=== PATIENT | female | born 1990 | race Caucasian/White ===

== ENCOUNTER 2020-11-15 13:19 | Emergency (ER) | payer OTHER, BC ==
[2020-11-15] MEDS ORDERED: Diphtheria,Pertussis(Acell),Tetanus Vaccine 0.5 ML Syringe IM ONE (14:20)
--- NOTE | 2020-11-15 14:30 | EDM.PDOC ---
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 Patient states that the area was bleeding extensively so she applied pressure and came to the emergency room immediately. Patient states that she is not up-to-date on her tetanus vaccine and would like to update this today. Patient states she is fully able to move the finger but does have pain of the area that was cut. Denies any other symptoms or concerns. Patient denies fever, chills, chest pain, shortness of breath, or cough. Denies headache, neck stiff ness, change in vision, syncope, or near syncope. Denies nausea, vomiting, abdominal pain, diarrhea, constipation, or dysuria. Has not noted any blood in urine or stool. Patient has been eating and drinking approp riately. Review of systems: As per history of present illness and below otherwise all systems reviewed and negative. Past medical history: As per history of present illness and as reviewed below otherwise noncontributory. Surgical history: As per history of present illness and as reviewed below otherwise noncontributory. Social history: See social history for further information Family history: As per history of present illness and as reviewed below otherwise noncontributory. Physical exam: General: Patient is alert, oriented, and in no acute distress. Patient sitting comfortably on exam table. Vitals stable and reviewed by me. HEENT: Atraumatic, normocephalic, pupils equal and reactive bilaterally, negative for conjunctival pallor or scleral icterus, mucous membranes moist, TMs normal bilaterally, throat clear, neck supple, nontender, trachea midline. No drooling or trismus noted. No meningeal signs. No hot potato voice noted. Lungs: Clear to auscultation, breath sounds equal bilaterally, chest nontender. Heart: S1S2, regular rate and rhythm without overt murmur Abdomen: Soft, nondistended, nontender. Negative for masses or hepatosplenomegaly. Negative for costovertebral tenderness. Pelvis: Stable nontender. Genitourinary: Deferred. Rectal: Deferred. Skin: Intact, warm, dry. No lesions or rashes noted. Extremities: There is a 2cm by 1cm area of shaved/missing skin on the thumb pad of the left hand 1st digit with steady bleeding after bandage removed. Patient has full range of motion of the complete digit without deficit. Intact sensation to light and deep touch of the complete left upper extremity without deficit. Radial pulses grossly intact of the left upper extremity with capillary refill less than 2 seconds. Otherwise, atraumatic, negative for cords or calf pain. Neurovascular unremarkable. Neuro: Awake, alert, oriented. Cranial nerves II through XII unremarkable. Cerebellum unremarkable. Motor and sensory unremarkable throughout. Exam nonfocal. Notes: Upon arrival to the ED, patient does have a rather large area of missing skin that was shaved off that is steadily bleeding. A finger tourniquet was applied to the thumb in order to stop the bleeding after bandage was removed. I was better able to assess the area after bleeding was stopped. There is not a repairable laceration, as this is an area of missing skin. Area was cleaned wit h chlorahexadine and 250cc of sterile fluid. A Surgicel clotting bulky dressing that was placed by nursing staff as well as myself with hemostasis noted after surgiseal application. Signs and symptoms that were prompt return to the ED thoroughly discussed with patient. Discussed importance for follow-up with primary care provider. Voices understanding and is agreeable to plan of care. Denies any further questions or concerns at this time. Diagnostics: None Therapeutics: tdap, surgiseal clotting / sterile bulky dressing placed by nursing staff Prescription: None Impression: Thumb wound, left, open Plan: 1. Keep the area clean and dry. Continue to monitor for signs of infection as discussed. Keep the bulky dressing on for 24 hours before removing. Do not get wet and keep dry. 2. Tylenol and/or ibuprofen as directed and as needed for pain management and discomfort. 3. Please follow-up with your primary care provider as discussed. Return to the ED as needed and as discussed. Definitive disposition and diagnosis as appropriate pending reevaluation and review of above. Left Finger-Thumb Pain Score (Numeric/FACES): 4 - Related Data Allergies Allergy/AdvReac Type Severity Reaction Status Date / Time No Known Allergies Allergy Verified 11/15/20 13:52 Home Meds: Home Meds Sertraline [Zoloft] 50 mg PO DAILY 11/15/20 [History] Past Medical History - Past Health History Medical/Surgical History: Denies Medical/Surgical History Psychiatric History: Reports: Anxiety - Infectious Disease History Infectious Disease History: Reports: None Social & Family History - Tobacco Use Tobacco Use Status *Q: Never Tobacco User - Caffeine Use Caffeine Use: Reports: Coffee - Recreational Drug Use Recreational Drug Use: No ED ROS GENERAL - Review of Systems Review Of Systems: Comprehensive ROS is negative, except as noted in HPI. ED EXAM, SKIN/RASH Exam: See Below (see dictation) Course - Vital Signs Last Recorded V/S: Last Vital Signs Temp 97.4 F 11/15/20 13:53 Pulse 84 11/15/20 13:53 Resp 16 11/15/20 13:53 BP 135/64 11/15/20 13:53 Pulse Ox 100 11/15/20 13:53 - Orders/Labs/Meds Orders: Active Orders 24 hr Category Date Time Status Vaccines to be Administered [RC] PER UNIT ROUTINE Care 11/15/20 14:20 Active Meds: Medications Discontinued Medications Generic Name Dose Route Start Last Admin Trade Name Freq PRN Reason Stop Dose Admin Diphtheria/Tetanus/Acell Pertussis 0.5 ml 11/15/20 14:20 11/15/20 14:38 Diphtheria,Pertussis(Acell),Tetanus Vaccine 0.5 Ml Syringe IM 11/15/20 14:21 0.5 ml .ONCE ONE Administration Departure - Departure Time of Disposition: 14:29 Disposition: Home, Self-Care 01 Clinical Impression: Open wound of thumb Qualifiers: Encounter type: initial encounter Laterality: left Qualified Code(s): S61.002A - Unspecified open wound of left thumb without damage to nail, initial encounter - Discharge Information Instructions: Nonsutured Laceration Care Referrals: PCP,None [Primary Care Provider] - Forms: ED Department Discharge Additional Instructions: The following information is given to patients seen in the emergency department who are being discharged to home. This information is to outline your options for follow-up care. We provide all patients seen in our emergency department with a follow-up referral. The need for follow-up, as well as the timing and circumstances, are variable depending upon the specifics of your emergency department visit. If you don't have a primary care physician on staff, we will provide you with a referral. We always advise you to contact your personal physician following an emergency department visit to inform them of the circumstance of the visit and for follow-up with them and/or the need for any referrals to a consulting specialist. The emergency department will also refer you to a specialist when appropriate. This referral assures that you have the opportunity for follow-up care with a specialist. All of these measure are taken in an effort to provide you with optimal care, which includes your follow-up. Under all circumstances we always encourage you to contact your private physician who remains a resource for coordinating your care. When calling for follow-up care, please make the office aware that this follow-up is from your recent emergency room visit. If for any reason you are refused follow-up, please contact the [facility] at and asked to speak to the emergency department charge nurse. [facility] [address] [place] [id number] [place] [address] 1. Keep the area clean and dry. Continue to monitor for signs of infection as discussed. Keep the bulky dressing on for 24 hours before removing. Do not get wet and keep dry. 2. Tylenol and/or ibuprofen as directed and as needed for pain management and discomfort. 3. Please follow-up with your primary care provider as discussed. Return to the ED as needed and as discussed. Sepsis Event Note (ED) - Evaluation Sepsis Screening Result: No Definite Risk - Focused Exam Vital Signs: Vital Signs Temp Pulse Resp BP Pulse Ox 11/15/20 13:53 97.4 F 84 16 135/64 100 - My Orders Last 24 Hours: My Active Orders 11/15/20 14:20 Vaccines to be Administered [RC] PER UNIT ROUTINE - Assessment/Plan Last 24 Hours: My Active Orders 11/15/20 14:20 Vaccines to be Administered [RC] PER UNIT ROUTINE
== END 2020-11-15 14:45 | disposition home or self-care (01) ==
LOC: MW.ED 13:19
DX: S61.002A Unspecified open wound of left thumb without damage to nail, initial encounter (principal); Z23 Encounter for immunization; Z79.899 Other long term (current) drug therapy; W26.8XXA Contact with other sharp object(s), not elsewhere classified, initial encounter
CPT/HCPCS: 90471; 90715; 99282

== ENCOUNTER 2020-11-15 18:16 | Emergency (ER) | payer OTHER, BC ==
[2020-11-15] MEDS ORDERED: Lidocaine 1% with EPINEPHrine 1:100,000 10 ML MDV INJECT ONE (20:26)
[2020-11-15] MEDS ORDERED: Lidocaine 1% with EPINEPHrine 1:100,000 20 ML MDV INJECT ONE (20:32)
[2020-11-15] MEDS ORDERED: Octyl 2-Cyanoacrylate 1 Tube TOP ONE (20:44)
--- NOTE | 2020-11-15 21:05 | EDM.PDOC ---
ED HPI GENERAL MEDICAL PROBLEM - General Chief Complaint: Laceration Stated Complaint: LEFT THUMB LACERATION Time Seen by Provider: 11/15/20 18:18 Source of Information: Reports: Patient History Limitations: Reports: No Limitations - History of Present Illness INITIAL COMMENTS - FREE TEXT/NARRATIVE: HISTORY AND PHYSICAL: History of present illness: She is a 30-year-old female who presents emergency room today with concern of a wound to her left hand thumb that occurred earlier today quiet personally seen and evaluated a few hours prior. Patient presented at that time after cutting her thumb on a mandolin cutter at work. Was updated on tetanus at her prior ED visit and was found to have a open wound of her left thumb that at that time was slowly bleeding and a surgiseal clotting pressure dressing was applied. Patient states that when she got home, the bandage was doing well. Patient states that she has started using her left hand and noted that the area had blood through the dressing that was placed in the emergency room. Patient denies any other symptoms or concerns. Patient denies fever, chills, chest pain, shortness of breath, or cough. Denies headache, neck stiff ness, change in vision, syncope, or near syncope. Denies nausea, vomiting, abdominal pain, diarrhea, constipation, or dysuria. Has not noted any blood in urine or stool. Patient has been eating and drinking appropriately. Review of systems: As per history of present illness and below otherwise all systems reviewed and negative. Past medical history: As per history of present illness and as reviewed below otherwise noncontributory. Surgical history: As per history of present illness and as reviewed below otherwise noncontributory. Social history: See social history for further information Family history: As per history of present illness and as reviewed below otherwise noncontributory. Physical exam: General: Patient is alert, oriented, and in no acute distress. Patient sitting comfortably on exam table. HEENT: Atraumatic, normocephalic, pupils equal and reactive bilaterally, negative for conjunctival pallor or scleral icterus, mucous membranes moist, TMs normal bilaterally, throat clear, neck supple, nontender, trachea midline. No drooling or trismus noted. No meningeal signs. No hot potato voice noted. Lungs: Clear to auscultation, breath sounds equal bilaterally, chest nontender. Heart: S1S2, regular rate and rhythm without overt murmur Abdomen: Soft, nondistended, nontender. Negative for masses or hepatosplenomegaly. Negative for costovertebral tenderness. Pelvis: Stable nontender. Genitourinary: Deferred. Rectal: Deferred. Skin: Intact, warm, dry. No lesions or rashes noted. Extremities: Bulky dressing and Surgicel were removed. The bulky dressing was noted to be saturated with blood. The wound of the thumb was reassessed and found to have a 2 cm x 1 cm shaved area of missing skin that continually has a small amount of oozing bleeding. Patient has full range of motion of the digit without deficit with intact sensation to light and deep touch of the complete left upper extremity without deficit. Radial pulse grossly intact of the left u pper extremity with capillary refill less than 2 seconds. Otherwise, atraumatic, negative for cords or calf pain. Neurovascular unremarkable. Neuro: Awake, alert, oriented. Cranial nerves II through XII unremarkable. Cerebellum unremarkable. Motor and sensory unremarkable throughout. Exam nonfocal. Notes: Upon arrival to the ED, patient has appeared to fail the Surgicel pressure dressing that was applied from prior ER visit. Will soak tranexamic acid dressing and apply pressure above patients head for 15-20 minutes with finger tourniquet applied. After tranexamic acid had been placed and pressure above patient's head had been applied for 15 to 20 minutes, and removal of finger tourniquet, the area continues to have a steady trickling of bleeding from the area of missing skin. Reattempt to apply surgiseal failed with rebleed. Lidocaine w epi dripped onto wound with noted stopping of bleeding. Dermabond applied after area dried. After complete drying of dermabond, area reassessed with noted hemostasis. Sterile bulky dressing applied by nursing staff. Patient states that she does feel a little "off "so will obtain an H&H after due to prolonged bleeding of wound. H&H is stable with a hemoglobin of 8.1 and a hematocrit of 38. Strict return precautions thoroughly discussed with patient. Discussed importance for follow-up with a primary care provider. Voices understanding and is agreeable to plan of care. Denies any further questions or concerns at this time. Diagnostics: None Therapeutics: TXA topical, Lidocaine w epi, surgiseal, dermabond Prescription: None Impression: Open wound of thumb with bleeding Plan: 1. Continue to monitor for signs of rebleeding as discussed. You can use Tylenol as directed for pain and discomfort. 2. Follow-up with your primary care provider as discussed. Return to the ED as needed and as discussed. Definitive disposition and diagnosis as appropriate pending reevaluation and review of above. Left Finger-Thumb Pain Score (Numeric/FACES): 1 - Related Data Allergies Allergy/AdvReac Type Severity Reaction Status Date / Time No Known Allergies Allergy Verified 11/15/20 18:50 Home Meds: Home Meds Sertraline [Zoloft] 50 mg PO DAILY 11/15/20 [History] Past Medical History - Past Health History Medical/Surgical History: Denies Medical/Surgical History Psychiatric History: Reports: Anxiety - Infectious Disease History Infectious Disease History: Reports: None Social & Family History - Tobacco Use Tobacco Use Status *Q: Never Tobacco User - Caffeine Use Caffeine Use: Reports: None - Recreational Drug Use Recreational Drug Use: No ED ROS GENERAL - Review of Systems Review Of Systems: Comprehensive ROS is negative, except as noted in HPI. ED EXAM, SKIN/RASH Exam: See Below (see dictation) Course - Vital Signs Last Recorded V/S: Last Vital Signs Temp 98.3 F 11/15/20 18:50 Pulse 64 11/15/20 22:17 Resp 18 11/15/20 22:17 BP 115/78 11/15/20 22:17 Pulse Ox 100 11/15/20 22:17 - Orders/Labs/Meds Labs: Laboratory Tests 11/15/20 Range/Units 21:52 Hgb 13.1 (12.0-16.0) g/dL Hct 38.1 (36.0-46.0) % Meds: Medications Discontinued Medications Generic Name Dose Route Start Last Admin Trade Name Freq PRN Reason Stop Dose Admin Lidocaine/Epinephrine 10 ml 11/15/20 20:26 11/15/20 20:48 Lidocaine 1% With Epinephrine 1:100,000 10 Ml Mdv INJECT 11/15/20 20:27 Not Given ONETIME ONE Lidocaine/Epinephrine 20 ml 11/15/20 20:32 11/15/20 20:48 Lidocaine 1% With Epinephrine 1:100,000 20 Ml Mdv INJECT 11/15/20 20:33 20 ml ONETIME ONE Administration Octyl Cyanoacrylate 1 applic 11/15/20 20:44 11/15/20 21:20 Octyl 2-Cyanoacrylate 1 Tube TOP 11/15/20 20:45 1 applic ONETIME ONE Administration Tranexamic Acid 1,000 mg 11/15/20 19:08 11/15/20 19:21 Tranexamic Acid 1,000 Mg/10 Ml Amp TOP 11/15/20 19:18 1,000 mg ONETIME ONE Administration Departure - Departure Time of Disposition: 21:04 Disposition: Home, Self-Care 01 Clinical Impression: Bleeding from wound Open wound of thumb Qualifiers: Encounter type: subsequent encounter Laterality: left Qualified Code(s): S61 .002D - Unspecified open wound of left thumb without damage to nail, subsequent encounter - Discharge Information Instructions: Uncontrolled Wound Bleeding, Laceration Care, Adult Referrals: Belinda Coyne MD [Primary Care Provider] - Forms: ED Department Discharge Additional Instructions: The following information is given to patients seen in the emergency department who are being discharged to home. This information is to outline your options for follow-up care. We provide all patients seen in our emergency department with a follow-up referral. The need for follow-up, as well as the timing and circumstances, are variable depending upon the specifics of your emergency department visit. If you don't have a primary care physician on staff, we will provide you with a referral. We always advise you to contact your personal physician following an emergency department visit to inform them of the circumstance of the visit and for follow-up with them and/or the need for any referrals to a consulting specialist. The emergency department will also refer you to a specialist when appropriate. This referral assures that you have the opportunity for follow-up care with a specialist. All of these measure are taken in an effort to provide you with optimal care, which includes your follow-up. Under all circumstances we always encourage you to contact your private physician who remains a resource for coordinating your care. When calling for follow-up care, please make the office aware that this follow-up is from your recent emergency room visit. If for any reason you are refused follow-up, please contact the [facility] Emergency Department at and asked to speak to the emergency department charge nurse. [facility] [address] [place] [id number] [facility] [address] [place] [id number] 1. Continue to monitor for signs of rebleeding as discussed. You can use Tylenol as directed for pain and discomfort. 2. Follow-up with your primary care provider as discussed. Return to the ED as needed and as discussed. Sepsis Event Note (ED) - Evaluation Sepsis Screening Result: No Definite Risk - Focused Exam Vital Signs: Vital Signs Temp Pulse Resp BP Pulse Ox 11/15/20 22:17 64 18 115/78 100 11/15/20 18:50 98.3 F 76 16 102/57 L 100
== END 2020-11-15 22:18 | disposition home or self-care (01) ==
LOC: MW.ED 18:16
DX: S61.002A Unspecified open wound of left thumb without damage to nail, initial encounter (principal); R58 Hemorrhage, not elsewhere classified; W26.8XXA Contact with other sharp object(s), not elsewhere classified, initial encounter; Y92.89 Other specified places as the place of occurrence of the external cause; Y99.0 Civilian activity done for income or pay
CPT/HCPCS: 12001; 36415; 85014; 85018; 99283; A9270

== ENCOUNTER 2025-04-25 13:33 | Emergency (ER) | payer BC ==
[2025-04-25] MEDS ORDERED: Sodium Chloride 0.9% 10 ML Syringe FLUSH PRN (14:15)
[2025-04-25] MEDS ORDERED: Sodium Chloride 0.9% 2.5 ML Syringe FLUSH PRN (14:15)
[2025-04-25] MEDS: Ketorolac 30 MG/ML SDV IVPUSH ONE (14:20)
[2025-04-25 14:37] LABS: BASOPHILS ABSOLUTE AUTO 0.06 K/uL (0.00-0.20); BASOPHILS PERCENT AUTO 1.0 % (0.0-1.0); EOSINOPHILS ABSOLUTE AUTO 0.06 K/uL (0.00-0.45); EOSINOPHILS PERCENT AUTO 1.0 % (0.0-6.0); IMMATURE GRAN ABSOLUTE AUTO 0.01 K/uL (0.00-0.05); IMMATURE GRAN PERCENT AUTO 0.2 % (0.0-0.4); LYMPHOCYTES ABSOLUTE AUTO 1.06 K/uL (1.00-4.80); LYMPHOCYTES PERCENT AUTO 17.1 % (24.0-44.0); MEAN PLATELET VOLUME 10.0 fL (9.4-12.3); MONOCYTES ABSOLUTE AUTO 0.68 K/uL (0.00-0.80); MONOCYTES PERCENT AUTO 11.0 % (0.0-8.0); NEUTROPHILS ABSOLUTE AUTO 4.32 K/uL (1.80-7.70); NEUTROPHILS PERCENT AUTO 69.7 % (41.0-71.0); NRBC ABSOLUTE 0.00 K/uL (0.00-0.02); NRBC PERCENT 0.0 /100WBC (0.0-0.2); PLATELET COUNT,PLT 205 K/uL (150-400); RED BLOOD CELL COUNT 4.00 M/uL (4.10-5.30); WHITE BLOOD CELL COUNT,WBC 6.19 K/uL (3.9-11.3)
[2025-04-25] MEDS: cefTRIAXone 1 GM in Water For Injection, Sterile 10 ML IVPUSH ONE (14:58)
[2025-04-25 14:59] LABS: A/G RATIO 1.0 (0.9-1.6); ALANINE AMINOTRANSFERASE,ALT 33 IU/L (14-63); ASPARTATE AMNIOTRANSFERASE,AST 25 IU/L (15-37); BILIRUBIN TOTAL 0.7 mg/dL (0.2-1.0); BLOOD UREA NITROGEN,BUN 16 mg/dL (7.0-18.0); CARBON DIOXIDE,CO2 23.5 mmol/L (21.0-32.0); CHLORIDE,CL 107 mmol/L (98-107); CREATININE 0.9 mg/dL (0.6-1.0); GLUCOSE RANDOM 105 mg/dL (74-106); POTASSIUM,K 3.5 mmol/L (3.5-5.1); PROTEIN TOTAL,TP 6.8 g/dL (6.4-8.2); SODIUM,NA 141 mmol/L (136-145)
[2025-04-25 15:00] LABS: ESTIMATED GFR 84 mL/min (>60)
[2025-04-25 15:02] LABS: LACTIC ACID 2.2 mmol/L (0.4-2.0)
[2025-04-25] MEDS: Dexamethasone Sod Phos Preservative Free 10 MG/ML Vial IV ONE (15:54)
[2025-04-25] MEDS: Dexamethasone 10 MG/ML SDV IVPUSH ONE (16:17)
== END 2025-04-25 16:36 | disposition home or self-care (01) ==
LOC: MW.ED 13:33
DX: J18.9 Pneumonia, unspecified organism (principal); E87.20 Acidosis, unspecified; Z79.899 Other long term (current) drug therapy; Z75.3 Unavailability and inaccessibility of health-care facilities
CPT/HCPCS: 36415; 71046; 80053; 83605; 83690; 83735; 85025; 87428; 96361; 96365; 96375; 99285; A9270; J0456; J0696; J1100; J1885; J7030; J7050

== ENCOUNTER 2025-04-27 10:23 | Inpatient (IN) | payer BC ==
[2025-04-27] MEDS: Iopamidol 755 MG/ML 500 ML Multipack Bottle IVPUSH STA (11:13)
[2025-04-27 11:14] LABS: BASOPHILS ABSOLUTE AUTO 0.04 K/uL (0.00-0.20); BASOPHILS PERCENT AUTO 0.5 % (0.0-1.0); EOSINOPHILS ABSOLUTE AUTO 0.15 K/uL (0.00-0.45); EOSINOPHILS PERCENT AUTO 2.1 % (0.0-6.0); IMMATURE GRAN ABSOLUTE AUTO 0.01 K/uL (0.00-0.05); IMMATURE GRAN PERCENT AUTO 0.1 % (0.0-0.4); LYMPHOCYTES ABSOLUTE AUTO 1.62 K/uL (1.00-4.80); LYMPHOCYTES PERCENT AUTO 22.2 % (24.0-44.0); MEAN PLATELET VOLUME 9.6 fL (9.4-12.3); MONOCYTES ABSOLUTE AUTO 0.61 K/uL (0.00-0.80); MONOCYTES PERCENT AUTO 8.3 % (0.0-8.0); NEUTROPHILS ABSOLUTE AUTO 4.88 K/uL (1.80-7.70); NEUTROPHILS PERCENT AUTO 66.8 % (41.0-71.0); NRBC ABSOLUTE 0.00 K/uL (0.00-0.02); NRBC PERCENT 0.0 /100WBC (0.0-0.2); PLATELET COUNT,PLT 249 K/uL (150-400); RED BLOOD CELL COUNT 4.08 M/uL (4.10-5.30); WHITE BLOOD CELL COUNT,WBC 7.31 K/uL (3.9-11.3)
[2025-04-27] MEDS: methylPREDNISolone Sodium Succinate 125 MG/2 ML SDV IVPUSH ONE (11:18)
[2025-04-27 11:30] LABS: D-DIMER QUANTITATIVE 0.85 mg/L FEU (0.00-0.50); INR 1.01 (0.86-1.11)
[2025-04-27 11:48] LABS: LACTIC ACID 1.4 mmol/L (0.4-2.0)
[2025-04-27 11:54] LABS: A/G RATIO 1.1 (0.9-1.6); ALANINE AMINOTRANSFERASE,ALT 87 IU/L (14-63); ASPARTATE AMNIOTRANSFERASE,AST 53 IU/L (15-37); BILIRUBIN TOTAL 0.4 mg/dL (0.2-1.0); BLOOD UREA NITROGEN,BUN 18 mg/dL (7.0-18.0); CARBON DIOXIDE,CO2 26.8 mmol/L (21.0-32.0); CHLORIDE,CL 106 mmol/L (98-107); CREATININE 0.8 mg/dL (0.6-1.0); EST CRCL DRUG DOSING (CG) 72.65 mL/min; GLUCOSE RANDOM 93 mg/dL (74-106); POTASSIUM,K 3.5 mmol/L (3.5-5.1); PROTEIN TOTAL,TP 7.5 g/dL (6.4-8.2); SODIUM,NA 144 mmol/L (136-145)
[2025-04-27 11:56] LABS: ESTIMATED GFR 97 mL/min (>60)
[2025-04-27] MEDS: Levofloxacin/Dextrose 5%-Water 750 MG in Premix Bag 1 BAG IV ONE (12:20)
[2025-04-27] MEDS: Ketorolac 30 MG/ML SDV IVPUSH ONE (12:48)
[2025-04-27] MEDS: Lidocaine 2% Viscous Solution 15 ML UD PO ONE (12:48)
[2025-04-27] MEDS ORDERED: Sodium Chloride 0.9% 10 ML Syringe FLUSH PRN (14:05)
[2025-04-27] MEDS ORDERED: Sodium Chloride 0.9% 2.5 ML Syringe FLUSH PRN (14:05)
[2025-04-27] MEDS ORDERED: Ondansetron 4 MG/2 ML SDV IVPUSH PRN (14:06)
[2025-04-27] MEDS: cefTRIAXone 1 GM in Water For Injection, Sterile 10 ML IVPUSH SCH (14:43)
[2025-04-27] MEDS: Phenol 1.4% Oral Spray 177 ML Bottle MUCMEM PRN (15:11)
[2025-04-27] MEDS: Benzocaine/Cetylpyridinium/Menthol Lozenge MUCMEM PRN (15:11)
[2025-04-27] MEDS: Codeine/guaiFENesin 10-100 MG/5 ML Syrup 5 ML Cup PO PRN (15:11)
[2025-04-27] MEDS: Magnesium Sulfate 2 GM/50 mL 2 GM in Premix Bag 1 BAG IV ONE (16:34)
[2025-04-28 06:06] LABS: BASOPHILS ABSOLUTE AUTO 0.01 K/uL (0.00-0.20); BASOPHILS PERCENT AUTO 0.1 % (0.0-1.0); EOSINOPHILS ABSOLUTE AUTO 0.00 K/uL (0.00-0.45); EOSINOPHILS PERCENT AUTO 0.0 % (0.0-6.0); IMMATURE GRAN ABSOLUTE AUTO 0.02 K/uL (0.00-0.05); IMMATURE GRAN PERCENT AUTO 0.2 % (0.0-0.4); LYMPHOCYTES ABSOLUTE AUTO 1.13 K/uL (1.00-4.80); LYMPHOCYTES PERCENT AUTO 11.8 % (24.0-44.0); MEAN PLATELET VOLUME 9.9 fL (9.4-12.3); MONOCYTES ABSOLUTE AUTO 0.85 K/uL (0.00-0.80); MONOCYTES PERCENT AUTO 8.9 % (0.0-8.0); NEUTROPHILS ABSOLUTE AUTO 7.56 K/uL (1.80-7.70); NEUTROPHILS PERCENT AUTO 79.0 % (41.0-71.0); NRBC ABSOLUTE 0.00 K/uL (0.00-0.02); NRBC PERCENT 0.0 /100WBC (0.0-0.2); PLATELET COUNT,PLT 210 K/uL (150-400); RED BLOOD CELL COUNT 3.26 M/uL (4.10-5.30); WHITE BLOOD CELL COUNT,WBC 9.57 K/uL (3.9-11.3)
[2025-04-28 06:39] LABS: BLOOD UREA NITROGEN,BUN 10.0 mg/dL (7.0-18.0); CARBON DIOXIDE,CO2 23.8 mmol/L (21.0-32.0); CHLORIDE,CL 110.0 mmol/L (98-107); CREATININE 0.6 mg/dL (0.6-1.0); EST CRCL DRUG DOSING (CG) 96.87 mL/min; GLUCOSE RANDOM 108.0 mg/dL (74-106); POTASSIUM,K 3.4 mmol/L (3.5-5.1); SODIUM,NA 144.0 mmol/L (136-145)
[2025-04-28 06:44] LABS: ESTIMATED GFR 118.0 mL/min (>60)
[2025-04-28] MEDS: Sodium Chloride 0.9% Inhalation Soln 3 ML Neb INH SCH (12:18)
[2025-04-28] MEDS ORDERED: Naloxone 0.4 MG/ML SDV IVPUSH PRN (15:38)
[2025-04-28] MEDS: Codeine/guaiFENesin 10-100 MG/5 ML Syrup 5 ML Cup PO PRN (21:04)
[2025-04-29 02:46] LABS: APPEARANCE,URINE CLEAR; GLUCOSE,URINE NEGATIVE (NEGATIVE); OCCULT BLOOD,URINE NEGATIVE (NEGATIVE)
[2025-04-29 02:59] LABS: EPITHELIAL CELLS,URINE FEW (NONE-FEW)
[2025-04-29 05:07] LABS: BORDETELLA PARAPERT IS1001 Not Detected (Not Detected)
[2025-04-29 05:58] LABS: BASOPHILS ABSOLUTE AUTO 0.06 K/uL (0.00-0.20); BASOPHILS PERCENT AUTO 0.8 % (0.0-1.0); EOSINOPHILS ABSOLUTE AUTO 0.28 K/uL (0.00-0.45); EOSINOPHILS PERCENT AUTO 3.9 % (0.0-6.0); IMMATURE GRAN ABSOLUTE AUTO 0.04 K/uL (0.00-0.05); IMMATURE GRAN PERCENT AUTO 0.6 % (0.0-0.4); LYMPHOCYTES ABSOLUTE AUTO 2.26 K/uL (1.00-4.80); LYMPHOCYTES PERCENT AUTO 31.8 % (24.0-44.0); MEAN PLATELET VOLUME 9.5 fL (9.4-12.3); MONOCYTES ABSOLUTE AUTO 0.54 K/uL (0.00-0.80); MONOCYTES PERCENT AUTO 7.6 % (0.0-8.0); NEUTROPHILS ABSOLUTE AUTO 3.92 K/uL (1.80-7.70); NEUTROPHILS PERCENT AUTO 55.3 % (41.0-71.0); NRBC ABSOLUTE 0.00 K/uL (0.00-0.02); NRBC PERCENT 0.0 /100WBC (0.0-0.2); PLATELET COUNT,PLT 229 K/uL (150-400); RED BLOOD CELL COUNT 3.34 M/uL (4.10-5.30); WHITE BLOOD CELL COUNT,WBC 7.10 K/uL (3.9-11.3)
[2025-04-29 06:30] LABS: BLOOD UREA NITROGEN,BUN 12.0 mg/dL (7.0-18.0); CARBON DIOXIDE,CO2 24.7 mmol/L (21.0-32.0); CHLORIDE,CL 109.0 mmol/L (98-107); CREATININE 0.7 mg/dL (0.6-1.0); EST CRCL DRUG DOSING (CG) 83.03 mL/min; GLUCOSE RANDOM 85.0 mg/dL (74-106); POTASSIUM,K 4.1 mmol/L (3.5-5.1); SODIUM,NA 141.0 mmol/L (136-145)
[2025-04-29 06:33] LABS: ESTIMATED GFR 114.0 mL/min (>60)
[2025-04-29] MEDS: Ketorolac 30 MG/ML SDV IVPUSH PRN (08:26)
[2025-04-30 05:55] LABS: BASOPHILS ABSOLUTE AUTO 0.05 K/uL (0.00-0.20); BASOPHILS PERCENT AUTO 0.7 % (0.0-1.0); EOSINOPHILS ABSOLUTE AUTO 0.36 K/uL (0.00-0.45); EOSINOPHILS PERCENT AUTO 4.8 % (0.0-6.0); IMMATURE GRAN ABSOLUTE AUTO 0.04 K/uL (0.00-0.05); IMMATURE GRAN PERCENT AUTO 0.5 % (0.0-0.4); LYMPHOCYTES ABSOLUTE AUTO 2.23 K/uL (1.00-4.80); LYMPHOCYTES PERCENT AUTO 29.6 % (24.0-44.0); MEAN PLATELET VOLUME 9.4 fL (9.4-12.3); MONOCYTES ABSOLUTE AUTO 0.65 K/uL (0.00-0.80); MONOCYTES PERCENT AUTO 8.6 % (0.0-8.0); NEUTROPHILS ABSOLUTE AUTO 4.21 K/uL (1.80-7.70); NEUTROPHILS PERCENT AUTO 55.8 % (41.0-71.0); NRBC ABSOLUTE 0.00 K/uL (0.00-0.02); NRBC PERCENT 0.0 /100WBC (0.0-0.2); PLATELET COUNT,PLT 273 K/uL (150-400); RED BLOOD CELL COUNT 3.51 M/uL (4.10-5.30); WHITE BLOOD CELL COUNT,WBC 7.54 K/uL (3.9-11.3)
[2025-04-30 06:19] LABS: BLOOD UREA NITROGEN,BUN 10.0 mg/dL (7.0-18.0); CARBON DIOXIDE,CO2 27.7 mmol/L (21.0-32.0); CHLORIDE,CL 107.0 mmol/L (98-107); CREATININE 0.7 mg/dL (0.6-1.0); EST CRCL DRUG DOSING (CG) 83.03 mL/min; GLUCOSE RANDOM 86.0 mg/dL (74-106); POTASSIUM,K 3.9 mmol/L (3.5-5.1); SODIUM,NA 142.0 mmol/L (136-145)
[2025-04-30 06:21] LABS: ESTIMATED GFR 114.0 mL/min (>60)
== END 2025-04-30 13:30 | disposition home or self-care (01) | DRG 139 ==
LOC: MW.ED 10:23 → MW.MS 13:55
PROVIDERS: ADMIT Internal Medicine; ATTEND Internal Medicine
DX: J16.0 Chlamydial pneumonia (principal); F41.9 Anxiety disorder, unspecified; E86.0 Dehydration; Z79.899 Other long term (current) drug therapy
CPT/HCPCS: 36415; 71046; 71046-26; 71275; 71275-26; 80048; 80053; 81001; 83605; 83690; 83735; 84484; 85025; 85379; 85610; 87040; 87486; 87581; 87633; 87641; 87899; 94640; 96361; 96374; 96375; 99283; 99285-25; A9270-GY; J0456; J0696; J1650; J1885; J1956; J2919; J3475; J7030; J7050; Q9967